=== PATIENT | male | born 1985 | race Caucasian/White ===

== ENCOUNTER 2023-10-05 10:37 | Outpatient (CLI) | payer OTHER, SELFPAY ==
--- NOTE | ~2023-10-05 | XR_ITS ---
EXAMINATION: XR abdomen/kub 1V DATE: 10/05/2023 10:56 INDICATION: Right ureteral stone. TECHNIQUE: A supine view of the abdomen on 2 radiographs was obtained. COMPARISON: None. FINDINGS: There are no dilated loops of bowel. The kidneys are obscured by bowel. Surgical clips in t he right upper quadrant are likely from cholecystectomy. There is a 2 mm calcification in right pelvi s, most likely a phlebolith. IMPRESSION: 1. 2 mm calcification in right pelvis, which may be a phlebolith or less likely a distal ureteral sto ne. Reviewed, dictated and finalized at location E. IMPRESSION: 1. 2 mm calcification in right pelvis, which may be a phlebolith or less likely a distal ureteral stone.
== END 2023-10-05 10:38 | disposition home or self-care (01) ==
PROVIDERS: Visit Provider Nurse Practitioner
DX: N20.1 Calculus of ureter (principal)
CPT/HCPCS: 74018